=== PATIENT | female | born 1995 | race Caucasian/White ===

== ENCOUNTER 2020-07-05 09:25 | Emergency (ER) | payer MEDICAID ==
[2020-07-05] MEDS ORDERED: Sodium Chloride 0.9% 1,000 ML IV ONE (10:17)
[2020-07-05] MEDS ORDERED: Ketorolac 30 MG/ML SDV IVPUSH ONE (10:17)
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
[2020-07-05] MEDS: Sodium Chloride 0.9% 10 ML Syringe FLUSH PRN ×3 (10:40→12:48)
[2020-07-05] MEDS ORDERED: Iopamidol 755 Mg/ML 100 ML Bottle IV ONE (11:19)
[2020-07-05] MEDS ORDERED: Diatrizoate Meglumine/Diatrizoate Sodium 37% 30 ML Bottle PO ONE (11:19)
[2020-07-05] MEDS ORDERED: Sodium Chloride 0.9% 50 ML IV SCH (11:30)
[2020-07-05 11:54] LABS: ANION GAP 13.1 mmol/L (5-15); CHLORIDE,CL 104 mmol/L (98-115); SODIUM,NA 138 mmol/L (136-145)
[2020-07-05] MEDS ORDERED: Morphine 4 MG/ML Syringe IVPUSH ONE (12:07)
[2020-07-05] MEDS ORDERED: Ondansetron 4 MG/2 ML SDV IVPUSH ONE (12:07)
--- NOTE | 2020-07-05 12:27 | CT ---
[id number] CT/CT Abdomen Pelvis W IV EXAM: CT Abdomen Pelvis W IV CLINICAL DATA: PELVIC PAIN COMPARISON: NO PREVIOUS SIMILAR EXAM IS AVAILABLE. FINDINGS: There is a 5.5 cm cystic right adnexal mass. Pelvic ultrasound may be helpful The appendix appears normal. The liver and spleen, kidneys and adrenals, pancreas and aorta are unremarkable The gallbladder has been removed IMPRESSION: CYSTIC RIGHT ADNEXAL MASS Jhony Carlos MD 07/05/20 [id number] Thank you for allowing us to participate in the care of your patient.
== END 2020-07-05 13:00 | disposition home or self-care (01) ==
LOC: KA.ED 09:25
DX: E28.2 Polycystic ovarian syndrome (principal); R10.2 Pelvic and perineal pain; F41.9 Anxiety disorder, unspecified; F32.9 Major depressive disorder, single episode, unspecified; E03.9 Hypothyroidism, unspecified; E66.9 Obesity, unspecified; Z68.39 Body mass index [BMI] 39.0-39.9, adult; Z91.018 Allergy to other foods; Z79.899 Other long term (current) drug therapy
CPT/HCPCS: 36415; 74177; 80053; 81001; 81025; 83690; 85025; 96374; 96375; 99284; 99284-25; J1885; J2270; J2405; J7030